=== PATIENT | female | born 1970 | race African-American/Black ===

== ENCOUNTER 2021-10-15 14:14 | Outpatient (CLI) | payer OTHER | END 2021-10-15 14:15 | disposition home or self-care (01) | LOC: CSHMAMMO 14:14 | PROVIDERS: ATTEND Student in an Organized Health Care Education/Training Program | DX: Z12.31 Encounter for screening mammogram for malignant neoplasm of breast (principal); Z80.3 Family history of malignant neoplasm of breast | CPT/HCPCS: 77063; 77067 ==

== ENCOUNTER 2023-02-08 13:07 | Outpatient (CLI) | payer OTHER | END 2023-02-08 13:08 | disposition home or self-care (01) | LOC: CSHMAMMO 13:07 | PROVIDERS: ATTEND Student in an Organized Health Care Education/Training Program | DX: Z12.31 Encounter for screening mammogram for malignant neoplasm of breast (principal); Z80.3 Family history of malignant neoplasm of breast | CPT/HCPCS: 77063; 77067 ==

== ENCOUNTER 2024-10-28 07:32 | Outpatient (CLI) | payer OTHER | END 2024-10-28 07:33 | disposition home or self-care (01) | LOC: CSHCT 07:32 | PROVIDERS: ATTEND Student in an Organized Health Care Education/Training Program | DX: K43.9 Ventral hernia without obstruction or gangrene (principal) | CPT/HCPCS: 74176 ==

== ENCOUNTER 2025-07-30 14:29 | Outpatient (CLI) | payer OTHER | END 2025-07-30 14:30 | disposition home or self-care (01) | LOC: CSHULT 14:29 | PROVIDERS: ATTEND Orthopaedic Surgery | DX: M71.22 Synovial cyst of popliteal space [Baker], left knee (principal) ==